=== PATIENT | male | born 1960 | race African-American/Black ===

== ENCOUNTER 2020-04-29 16:47 | Emergency (ER) | payer MEDICARE ==
[~2020-04-29] VITALS: Ht 149.8 cm; Wt 61.2 kg
[~2020-04-29 16:47] MED LIST: ANAPROX DS550 MG PO; MOTRIN800 MG PO; NKHM; NORCO 5-325 TA1 EACH PO; VICODIN 500 MG-1 TAB PO
[2020-04-29] MEDS ORDERED: TYLENOL325 M1 PO (18:39)
[2020-04-29] MEDS ORDERED: NAPROSYN500 MG PO (19:45)
== END 2020-04-29 19:08 | disposition home or self-care (01) ==
LOC: ED 16:47
DX: S69.91XA Unspecified injury of right wrist, hand and finger(s), initial encounter (principal); S59.901A Unspecified injury of right elbow, initial encounter; Z79.899 Other long term (current) drug therapy; X58.XXXA Exposure to other specified factors, initial encounter; Y93.89 Activity, other specified; Y92.89 Other specified places as the place of occurrence of the external cause; Y99.8 Other external cause status

== ENCOUNTER → 2020-10-05 | Outpatient (CLI) | payer MEDICARE ==
[~2020-10-05] MED LIST changes: +NAPROSYN500 MG PO; +TYLENOL325 M1 PO
== END | disposition home or self-care (01) ==
LOC: CARD 11:17
PROVIDERS: ATTEND Family Medicine
DX: I51.7 Cardiomegaly (principal)

== ENCOUNTER 2023-09-25 16:39 | Emergency (ER) | payer MEDICARE ==
[~2023-09-25] VITALS: Wt 65.8 kg
== END 2023-09-25 19:31 | disposition home or self-care (01) ==
LOC: ED 16:39
DX: M79.89 Other specified soft tissue disorders (principal); M25.562 Pain in left knee; Z88.2 Allergy status to sulfonamides; Z79.899 Other long term (current) drug therapy

== ENCOUNTER → 2024-01-07 | Outpatient (CLI) | payer MEDICARE, MEDICAID ==
[2024-01-07 17:30] LABS: BASO % 0.3 % (0.0-1.0); EOS # 0.3 10*3/uL (0.0-0.4); EOS % 2.3 % (1.0-4.0); HEMATOCRIT 39.8 % (42.0-52.0); LYMPH # 3.3 10*3/uL (1.3-4.4); LYMPH % 27.7 % (27.0-41.0); MEAN CELL VOLUME 75.1 fl (80.0-94.0); MEAN CORPUSCULAR HGB 25.1 pg (27.0-31.0); MEAN CORPUSCULAR HGB CONC 33.4 g/dl (33.0-37.0); MEAN PLATELET VOLUME 9.7 fl (9.6-12.3); MONO # 0.9 10*3/uL (0.1-1.0); MONO % 7.2 % (3.0-9.0); NEUT # 7.3 10*3/uL (2.3-7.9); NEUT % 62.1 % (47.0-73.0); PLATELET COUNT AUTOMATED 352 10*3/uL (130-400); RED CELL DISTRI WIDTH 15.5 % (0-14.5); WHITE BLOOD COUNT 11.8 10*3/uL (4.8-10.8)
[2024-01-07 17:50] LABS: BUN 17 mg/dl (9-23); CHLORIDE 105 mmol/L (98-107); POTASSIUM 4.1 mmol/L (3.4-5.1)
== END | disposition home or self-care (01) ==
LOC: US 16:00 → LAB 16:38
PROVIDERS: ATTEND Student in an Organized Health Care Education/Training Program
DX: M16.12 Unilateral primary osteoarthritis, left hip (principal); M71.22 Synovial cyst of popliteal space [Baker], left knee; I12.9 Hypertensive chronic kidney disease with stage 1 through stage 4 chronic kidney disease, or unspecified chronic kidney disease; N18.31 Chronic kidney disease, stage 3a; R06.02 Shortness of breath

== ENCOUNTER → 2024-01-15 | Outpatient (CLI) | payer MEDICARE, MEDICAID | END | disposition home or self-care (01) | LOC: US 13:30 | PROVIDERS: ATTEND Family Medicine | DX: I07.1 Rheumatic tricuspid insufficiency (principal); N18.31 Chronic kidney disease, stage 3a; R06.02 Shortness of breath ==

== ENCOUNTER 2025-01-23 15:14 | Inpatient (IN) | payer MEDICARE, MEDICAID ==
[~2025-01-23] VITALS: Ht 149.9 cm; Wt 73.2 kg
[~2025-01-23 15:14] MED LIST changes: +VANCOMYCIN IV ONE; +[UNRECOGNIZED DRUG - OTHER] IV ONE
[2025-01-23 15:23] VITALS: BP 171/121
[2025-01-23 15:57] LABS: BASO # 0.0 10*3/uL (0.0-0.1); BASO % 0.3 % (0.0-1.0); EOS # 0.3 10*3/uL (0.0-0.4); EOS % 2.6 % (1.0-4.0); MEAN CELL VOLUME 74.0 fl (80.0-94.0); MEAN CORPUSCULAR HGB 24.5 pg (27.0-31.0); MEAN PLATELET VOLUME 10.0 fl (9.6-12.3); MONO # 0.8 10*3/uL (0.1-1.0); MONO % 6.4 % (3.0-9.0); NEUT # 7.1 10*3/uL (2.3-7.9); NEUT % 61.0 % (47.0-73.0); NUCLEATED RED BLOOD CELL 0.0 % (0.0-0.0); NUCLEATED RED BLOOD CELL 0.0 10*3/uL (0.0-0.0); PLATELET COUNT AUTOMATED 296 10*3/uL (130-400); RED CELL DISTRI WIDTH 14.7 % (0-14.5)
[2025-01-23 16:19] LABS: BUN 14 mg/dl (9-23)
[2025-01-23] MEDS ORDERED: ceFAZolin sodium 2 GM in SYRINGE INFUSION 20 ML IV ONE (17:25)
[2025-01-23] MEDS ORDERED: SODIUM CHLORIDE 0.9% 1,000 ML IV ONE (17:25)
[2025-01-23] MEDS ORDERED: ceFAZolin sodium/sodium chlor 20 ML IV ONE (17:30)
[2025-01-23] MEDS ORDERED: AMLODIPINE-BEN1 EAC3 PO (19:06)
[2025-01-23 21:15] VITALS: BP 185/80
[2025-01-23 21:20] VITALS: BP 170/76
[2025-01-23] MEDS ORDERED: ACETAMINOPHEN 325 MG TAB PO PRN (21:30)
[2025-01-23] MEDS ORDERED: Tdap Vaccine 0.5 ML SYR (Adult Vaccine) IM ONE (21:50)
[2025-01-23] MEDS ORDERED: Vancomycin Hydrochloride 1,000 MG in SODIUM CHLORIDE 0.9% 250 ML IV SCH (23:00)
[2025-01-24] VITALS: BP 142/89
[2025-01-24 06:05] LABS: BASO # 0.0 10*3/uL (0.0-0.1); BASO % 0.2 % (0.0-1.0); EOS # 0.3 10*3/uL (0.0-0.4); EOS % 2.5 % (1.0-4.0); MEAN CELL VOLUME 75.0 fl (80.0-94.0); MEAN CORPUSCULAR HGB 24.2 pg (27.0-31.0); MEAN PLATELET VOLUME 10.2 fl (9.6-12.3); MONO # 0.9 10*3/uL (0.1-1.0); MONO % 7.3 % (3.0-9.0); NEUT # 8.0 10*3/uL (2.3-7.9); NEUT % 63.4 % (47.0-73.0); NUCLEATED RED BLOOD CELL 0.0 % (0.0-0.0); NUCLEATED RED BLOOD CELL 0.0 10*3/uL (0.0-0.0); PLATELET COUNT AUTOMATED 297 10*3/uL (130-400); RED CELL DISTRI WIDTH 14.8 % (0-14.5)
[2025-01-24 06:54] LABS: BUN 13 mg/dl (9-23); FREE T4 1.29 ng/dl (0.89-1.76); LDL CHOLESTEROL 116 mg/dL (9-159); SGPT/ALT 29 U/L (5-49)
[2025-01-24 08:00] VITALS: BP 166/92
[2025-01-24 08:13] LABS: VITAMIN D, 25-HYDROXY 46.5 ng/mL (30-100)
[2025-01-24] MEDS ORDERED: LISINOPRIL 20 MG TAB PO SCH (10:00)
[2025-01-24] MEDS ORDERED: VIBRA-TAB100 MG PO (10:13)
== END 2025-01-24 11:30 | disposition home or self-care (01) | DRG 603 ==
LOC: ED 15:14 → EDHOLD 18:04 → 5E 18:04
PROVIDERS: Nurse Practitioner Family; Student in an Organized Health Care Education/Training Program; ADMIT Student in an Organized Health Care Education/Training Program; ATTEND Student in an Organized Health Care Education/Training Program
DX: L03.113 Cellulitis of right upper limb (principal); D72.829 Elevated white blood cell count, unspecified; E11.9 Type 2 diabetes mellitus without complications; F10.90 Alcohol use, unspecified, uncomplicated; I16.0 Hypertensive urgency; D50.9 Iron deficiency anemia, unspecified; N18.31 Chronic kidney disease, stage 3a; I12.9 Hypertensive chronic kidney disease with stage 1 through stage 4 chronic kidney disease, or unspecified chronic kidney disease; Z88.2 Allergy status to sulfonamides; Z79.899 Other long term (current) drug therapy; Z79.01 Long term (current) use of anticoagulants; Z80.8 Family history of malignant neoplasm of other organs or systems; Z79.2 Long term (current) use of antibiotics; Y90.0 Blood alcohol level of less than 20 mg/100 ml